=== PATIENT | male | born 1965 | race Caucasian/White ===

== ENCOUNTER → 2017-05-27 | Outpatient (CLI) | payer BC ==
[~2017-05-27] MED LIST: IBP800T PO; LOVA10TA PO; PHEN37.555 PO; PROP1TAB77 PO
--- NOTE | 2017-05-27 11:15 | Diagnostic Imaging Report ---
PROCEDURE: US Gallbladder. TECHNIQUE: Multiple real-time grayscale images were obtained over the right upper quadrant in various projections. INDICATION: Bloating, dyspepsia, right upper quadrant pain. FINDINGS: The visualized portions of the pancreas appear unremarkable. The liver is 19 cm in craniocaudal dimension, prominent, and is fairly homogeneous with no suspicious focal lesion seen. It is hyperechoic which may relate to fatty infiltration or hepatitis. A focus of hypoechogenicity near the gallbladder bed is probably related to focal fatty sparing. The CBD is not visualized. The gallbladder demonstrates no stones or wall thickening. No pericholecystic fluid seen. The right kidney is 14.7 cm in length with no hydronephrosis or focal lesion. No fluid collection in the upper right abdomen seen. Sonographic Wilson sign is reportedly negative. IMPRESSION: The liver size is prominent with increased echogenicity which relate to fatty infiltration or hepatitis. Dictated by: Dictated on workstation # [id number]
== END ==
LOC: RAD 07:46
PROVIDERS: ATTEND Family Medicine
DX: K76.9 Liver disease, unspecified (principal); R10.11 Right upper quadrant pain
CPT/HCPCS: 76705

== ENCOUNTER 2017-10-13 14:45 | Outpatient (CLI) | payer BC | END 2017-10-13 14:55 | disposition home or self-care (01) | LOC: SLEEP 14:45 | PROVIDERS: ATTEND Family Medicine | DX: G47.33 Obstructive sleep apnea (adult) (pediatric) (principal); G47.10 Hypersomnia, unspecified ==

== ENCOUNTER → 2018-10-28 | Outpatient (CLI) | payer BC ==
[2018-10-28 10:06] LABS: BASOPHILS % (AUTO) 0 % (0-10); EOSINOPHILS # (AUTO) 0.1 10^3/uL (0.0-0.3); EOSINOPHILS % (AUTO) 1 % (0-10); HEMATOCRIT 44 % (40-54); HEMOGLOBIN 14.5 G/DL (13.3-17.7); LYMPHOCYTES # (AUTO) 1.9 X 10^3 (1.0-4.0); LYMPHOCYTES % (AUTO) 23 % (12-44); MEAN CORPUSCULAR HEMOGLOBIN 29 PG (25-34); MEAN CORPUSCULAR HGB CONC 33 G/DL (32-36); MEAN CORPUSCULAR VOLUME 88 FL (80-99); MEAN PLATELET VOLUME 10.9 FL (7.4-10.4); MONOCYTES # (AUTO) 0.9 X 10^3 (0.0-1.0); MONOCYTES % (AUTO) 12 % (0-12); NEUTROPHILS # (AUTO) 5.3 X 10^3 (1.8-7.8); NEUTROPHILS % (AUTO) 65 % (42-75); PLATELET COUNT 198 10^3/uL (130-400); RED CELL DISTRIBUTION WIDTH 14.3 % (10.0-14.5); WHITE BLOOD COUNT 8.2 10^3/uL (4.3-11.0)
[2018-10-28 10:25] LABS: ALANINE AMINOTRANSFERASE 32 U/L (0-55); ALBUMIN 4.5 GM/DL (3.2-4.5); ALKALINE PHOSPHATASE 85 U/L (40-136); BILIRUBIN,TOTAL 0.7 MG/DL (0.1-1.0); BUN/CREATININE RATIO 19; CALCIUM 9.5 MG/DL (8.5-10.1); CARBON DIOXIDE 24 MMOL/L (21-32); CHLORIDE 104 MMOL/L (98-107); GFR ESTIMATED > 60; GLUCOSE 107 MG/DL (70-105); POTASSIUM 3.6 MMOL/L (3.6-5.0); SODIUM 139 MMOL/L (135-145); TOTAL PROTEIN 8.3 GM/DL (6.4-8.2)
--- NOTE | 2018-10-28 10:45 | Diagnostic Imaging Report ---
EXAMINATION: PA and lateral chest at 0945 hours. INDICATION: Chest pain. COMPARISON: There are no prior studies available for comparison. FINDINGS: This exam is less than optimal as the study was taken in shallow inspiration. Allowing for this technical factor, the heart size is within normal limits and the lungs are generally clear. There is no evidence for pneumonia or for a pleural effusion. There are a few thin strands of atelectasis in the right lung base. These may be related to the shallow degree of inspiration. The mediastinum is not widened. The osseous structures are intact. IMPRESSION: Allowing for the shallow degree of inspiration, there is no evidence for an acute cardiopulmonary abnormality. Dictated by: Dictated on workstation # [id number]
== END ==
LOC: CARD 09:35
PROVIDERS: ATTEND Family Medicine
DX: R07.9 Chest pain, unspecified (principal)
CPT/HCPCS: 36415; 71046; 80053; 84484; 85025; 93005